=== PATIENT | male | born 1970 | race Caucasian/White ===

== ENCOUNTER 2020-01-23 12:11 | Outpatient (CLI) | payer OTHER, SELFPAY ==
--- NOTE | ~2020-01-23 | MR_ITS ---
. EXAMINATION: MR hip RT w con DATE: 01/23/2020 15:37 INDICATION: Right hip femoral acetabular impingement. TECHNIQUE: Magnetic resonance imaging (MRI) of the right hip was performed without intravenous contra st after intra-articular injection of the hip (MR arthrogram). Sequences included axial and coronal T 1-weighted FSE, axial T2-weighted FS FSE, and coronal STIR FSE of the pelvis. Sequences of the hip in cluded 2D FIESTA, T1-weighted fast GRE, coronal and axial oblique T1-weighted FS FSE and T2-weighted FS FSE, and sagittal T2-weighted FS FSE. COMPARISON: left hip MRI 03/27/19, pelvis radiograph 03/13/19 FINDINGS: Bones/cartilage: Bone alignment is normal. No fracture. There are changes of osteotomy of the left femoral head/neck j unction. The left hip joint demonstrates tiny osteophytes. There is osteonecrosis of anterior superio r right femoral head measuring 2.9 cm left to right by 2.3 cm anterior to posterior. There is decreas ed right femoral head/neck offset which may be seen with femoral acetabular impingement. There is pit ting at the right femoral head/neck junction. There full-thickness cartilage loss of the lateral and posterior rim of the right acetabulum. The right hip joint demonstrates tiny osteophytes. Labrum: There is a tear of the anterior superolateral aspect of the right acetabular labrum. Fluid: The right hip joint is well distended by contrast. There is a moderate-sized left hip joint effusion. There is mild left trochanteric bursitis. Soft tissues: The iliopsoas tendons are normal. There is mild tendinopathy of the left hamstring origin. There is m ild tendinopathy of the gluteus minimus tendons. The gluteus medius tendons are normal. IMPRESSION: 1. Full-thickness cartilage loss of the lateral and posterior rim of the right acetabulum. 2. Right femoral head osteonecrosis. 3. Osteotomy of the left femoral head/neck junction. 4. Moderate-sized left hip joint effusion. Reviewed, dictated and finalized at location A.
--- NOTE | ~2020-01-23 | XR_ITS ---
EXAMINATION: XR fl inj hip RT for MR/CT DATE: 01/23/2020 13:26 INDICATION: Femoral acetabular impingement TECHNIQUE: A time-out was performed to verify the patient's name, date of , and procedure to b e performed. The procedure including the risks, benefits, and alternatives was discussed with the pat ient. Risks discussed included bleeding and infection. The patient understood the risks and agreed to proceed. The skin overlying the right hip joint was prepped and draped in usual sterile fashion. A nesthetic was administered with 1% lidocaine subcutaneously. A 22 G needle was advanced under fluoro scopic guidance into the joint. Injection of 0.4 mL of Omnipaque 240 confirmed intra-articular posit ion of the needle. Subsequently, injectate consisting of 12 mL of 2:1:1 mixture of sterile saline:Om nipaque 240:1% lidocaine mixed 200:1 with 529 mg/mL Multihance gadolinium contrast was injected. Wash out of contrast was seen confirming intra-articular administration. The needle was removed and the en try site was cleaned and dressed. There were no immediate complications. Fluoroscopy exposure time wa s 0.3 minutes. The total number of images was 169. FINDINGS: Real-time fluoroscopy demonstrates the needle in the right hip joint. IMPRESSION: 1. Right hip injection of dilute gadolinium contrast mixture for subsequent MRI arthrogram which will be dictated separately. Reviewed, dictated and finalized at location A.
== END 2020-01-23 12:12 | disposition home or self-care (01) ==
PROVIDERS: PCP Internal Medicine
DX: M25.451 Effusion, right hip (principal)
CPT/HCPCS: 20610; 73722; 77002; Q9966

== ENCOUNTER 2023-11-11 01:01 | Day surgery (SDC) | payer BC, SELFPAY ==
[2023-10-29 10:57] VITALS: BMI 31.2
[2023-11-11 10:09] VITALS: BP 111/70; PULSE 62; RESP 20; TEMP 36; O2SAT 100
[2023-11-11 10:10] LABS: Glucose Point of Care 141 mg/dl (65-105)
[2023-11-11] MEDS: LACTATED RINGERS 1,000 ML 150 ML IV CONT (10:24)
--- NOTE | 2023-11-11 11:50 | PM.IMHP ---
H&P: HPI History of Present Illness Date/Time: 11/11/23 11:50 Chief Complaint: screening for colorectal cancer Narrative: this is a 53-year-old man who presents for colonoscopy. He has never had a colonoscopy before. He denies any hematochezia or melena . he denies family history of colon cancer cancer. Review of Systems Review of Systems: All systems reviewed & are unremarkable except as noted in HPI and below Constitutional: Constitutional: Denies chills, Denies fever(s), Denies headache(s) and Denies weight loss Eyes: Eyes: Denies change in vision ENT: Denies dizziness, Denies headache(s), Denies neck mass and Denies throat swelling Cardiovascular: Cardiovascular: Denies chest pain, Denies lightheadedness and Denies dyspnea Respiratory: Respiratory: Denies cough, Denies dyspnea and Denies wheezing Gastrointestinal: Gastrointestinal: Denies abdominal pain, Denies change in bowel habits, Denies nausea and Denies vomiting Genitourinary: Genitourinary: Denies hematuria and Denies dysuria Musculoskeletal: Musculoskeletal: Reports as per HPI Integumentary/Breasts: Skin/Breast: Reports as per HPI Neurologic: Denies dizziness and Denies headache(s) Allergic/Immunologic: Allergic/Immunologic: Denies throat swelling and Denies wheezing PMFSH Past Medical History Medical History COVID-19 Surgical History Surgical History Hx of spinal surgery Family History Family History Mother Family history of glaucoma Family history of Alzheimer's disease Sibling Family history of diabetes mellitus in first degree relative Diabetes mellitus Father Patient's father is Other Hypertension Social History Social History Smoking status: Never smoker Second hand tobacco smoke exposure: Yes Alcohol intake: current Drinks per week: 2 Substance use: never Substance use type: does not use Lack of Transportation: No Lack of Food: Never True Current Housing: I Have Housing Concerned About Future Housing: No Difficulty Paying Gas/Electric Bills: No Difficulty Paying for Meds: No Currently Unemployed: No Education: Bachelor's Degree Difficulty w/ Childcare or Family Care: No Living arrangements: with family Spiritual care concerns: No Meds Home Medications and Allergies Home Medications Medication Instructions Recorded Confirmed Type cholecalciferol (vitamin D3) 125 125 mcg PO DAILY 10/03/20 10/29/23 History mcg (5,000 unit) capsule aspirin 81 mg tablet,delayed 81 mg PO DAILY #90 tabs 05/09/21 10/29/23 Rx release fluticasone propionate 50 See Rx Instructions .Route 08/24/22 10/29/23 Rx mcg/actuation nasal .COMPLEX #16 mL spray,suspension dapagliflozin propanediol 10 mg See Rx Instructions .Route 08/12/23 10/29/23 Rx tablet (Farxiga) .COMPLEX #90 tabs dulaglutide 3 mg/0.5 mL See Rx Instructions .Route 08/12/23 10/29/23 Rx subcutaneous pen injector .COMPLEX #6 mL (Trulicity) escitalopram oxalate 20 mg tablet See Rx Instructions .Route 08/12/23 10/29/23 Rx .COMPLEX #90 tabs sitagliptin phosphate 50 1 tablet PO BID #180 tabs 08/12/23 10/29/23 Rx mg-metformin 500 mg tablet (Janumet) tirzepatide 5 mg/0.5 mL 5 mg (0.5 mL) subcut WEEKLY #6 mL 10/27/23 Rx subcutaneous pen injector (Ambikaro) Allergies Allergy/AdvReac Type Severity Reaction Status Date / Time codeine AdvReac Nausea and Verified 11/11/23 10:08 Vomiting oxycodone AdvReac Diarrhea Verified 11/11/23 10:08 Vital Signs Vital Signs - 24 hr 11/11/23 10:09 Temperature 36.0 C L Pulse Rate 62 Respiratory Rate 20 Blood Pressure 111/70 Pulse Oximetry 100 Oxygen Delivery Room Air Exam Const: General: no acute distress and
[2023-11-11 12:21] VITALS: BP 100/75; PULSE 75; RESP 17; O2SAT 97
[2023-11-11 12:31] VITALS: BP 106/74; PULSE 60; RESP 17; O2SAT 100
[2023-11-11 12:41] VITALS: BP 111/75; PULSE 63; RESP 24; O2SAT 100
--- NOTE | 2023-11-15 13:50 | WPDANESEPPF ---
Anes - Initial Pre Proc Eval Procedure: Operation Date: 11/11/23 11:00 Proposed Procedures p Colonoscopy - Myles White DO Date/Time: 11/15/23 13:50 Surgeon: Myles White DO Pre Op Diagnosis: Screening neoplasm Patient Data Age: 53 Gender: M Height: 1.91 m Weight: 109.7 kg Last Vital Signs Temp 96.8 F L 11/11/23 10:09 Pulse 63 11/11/23 12:41 Resp 24 H 11/11/23 12:41 BP 111/75 11/11/23 12:41 Pulse Ox 100 11/11/23 12:41 O2 Del Method Room Air 11/11/23 12:41 Allergies Allergy/AdvReac Type Severity Reaction Status Date / Time codeine AdvReac Nausea and Verified 11/11/23 10:08 Vomiting oxycodone AdvReac Diarrhea Verified 11/11/23 10:08 Home Medications Medication Instructions Recorded Confirmed Type cholecalciferol (vitamin D3) 125 125 mcg PO DAILY 10/03/20 10/29/23 History mcg (5,000 unit) capsule aspirin 81 mg tablet,delayed 81 mg PO DAILY #90 tabs 05/09/21 10/29/23 Rx release fluticasone propionate 50 See Rx Instructions .Route 08/24/22 10/29/23 Rx mcg/actuation nasal .COMPLEX #16 mL spray,suspension dapagliflozin propanediol 10 mg See Rx Instructions .Route 08/12/23 10/29/23 Rx tablet (Farxiga) .COMPLEX #90 tabs dulaglutide 3 mg/0.5 mL See Rx Instructions .Route 08/12/23 10/29/23 Rx subcutaneous pen injector .COMPLEX #6 mL (Trulicity) escitalopram oxalate 20 mg tablet See Rx Instructions .Route 08/12/23 10/29/23 Rx .COMPLEX #90 tabs sitagliptin phosphate 50 1 tablet PO BID #180 tabs 08/12/23 10/29/23 Rx mg-metformin 500 mg tablet (Janumet) tirzepatide 5 mg/0.5 mL 5 mg (0.5 mL) subcut WEEKLY #6 mL 10/27/23 Rx subcutaneous pen injector (Mounjaro) Patient hx anesthesia problems: none Family hx anesthesia problems: none Results Review: All pre-operative results and documents have been reviewed as part of the pre-operative evaluation. [facility] Past Medical History Medical History COVID-19 Surgical History Surgical History Hx of spinal surgery Family History Family History Mother Family history of glaucoma Family history of Alzheimer's disease Sibling Family history of diabetes mellitus in first degree relative Diabetes mellitus Father Patient's father is Other Hypertension Social History Social History Smoking status: Never smoker Second hand tobacco smoke exposure: Yes Alcohol intake: current Drinks per week: 2 Substance use: never Substance use type: does not use Lack of Transportation: No Lack of Food: Never True Current Housing: I Have Housing Concerned About Future Housing: No Difficulty Paying Gas/Electric Bills: No Difficulty Paying for Meds: No Currently Unemployed: No Education: Bachelor's Degree Difficulty w/ Childcare or Family Care: No Living arrangements: with family Spiritual care concerns: No Anes - Eval Final PreProcedure Day of Procedure 11/15/23 13:50 Patient weight: normal Heart: regular rate and rhythm Lungs: clear to auscultation Airway: Mallampati scale class II Neurological: alert and oriented Last oral intake: >/= 8 hours ASA classification: III Emergent: no Anesthetic plan: proceed Anesthesia type and monitoring: general GIVS and standard monitoring Results Review: All pre-operative results and documents have been reviewed as part of the pre-operative evaluation. Informed Consent: The patient's anesthetic plan and its attendant risks and benefits were discussed with the patient/family/POA. Questions were solicited and answers provided to the satisfaction of the patient/family/POA.
== END 2023-11-11 12:49 | disposition home or self-care (01) ==
PROVIDERS: PCP Family Medicine; Visit Provider Surgery
PROC: 0DJD8ZZ Inspection of Lower Intestinal Tract, Via Natural or Artificial Opening Endoscopic (ICD-10-PCS; CPT 45378; principal; 2023-11-11 11:00)
DX: Z12.11 Encounter for screening for malignant neoplasm of colon (principal); Z79.82 Long term (current) use of aspirin; Z79.85 Long-term (current) use of injectable non-insulin antidiabetic drugs; Z79.84 Long term (current) use of oral hypoglycemic drugs; Z98.1 Arthrodesis status
CPT/HCPCS: 45378; 82948; J2001; J2704; J7120